=== PATIENT | male | born 1945 | race Caucasian/White ===

== ENCOUNTER 2016-12-11 23:35 | Emergency (ER) | payer MEDICARE ==
[2016-12-12] MEDS ORDERED: ALBUTEROL NEB 2.5 MG/3 ML INH STA (00:15)
[2016-12-12 00:33] LABS: BASOPHILS # (AUTO) 0.1 10^3/uL (0.0-0.1); BASOPHILS % (AUTO) 0.8 %; EOSINOPHILS # (AUTO) 0.2 10^3/uL (0.0-0.7); EOSINOPHILS % (AUTO) 1.6 %; HCT - HEMATOCRIT 45.3 % (42.0-52.0); HGB - HEMOGLOBIN 15.5 g/dL (14.0-18.0); LYMPHOCYTES # (AUTO) 1.4 10^3/uL (1.5-3.5); LYMPHOCYTES % (AUTO) 14.3 %; MEAN CORPUSCULAR HEMOGLOBIN 29.5 pg (27.0-31.0); MEAN CORPUSCULAR HGB CONC 34.3 g/dL (32.0-36.0); MEAN CORPUSCULAR VOLUME 86.2 fL (80.0-94.0); MEAN PLATELET VOLUME 6.8 fL (7.4-11.4); MONOCYTES # (AUTO) 0.8 10^3/uL (0.0-1.0); MONOCYTES % (AUTO) 8.4 %; NEUTROPHILS # (AUTO) 7.4 10^3/uL (1.5-6.6); NEUTROPHILS % (AUTO) 74.9 %; RED BLOOD COUNT 5.26 10^6/uL (4.70-6.10); RED CELL DISTRIBUTION WIDTH 13.5 % (12.0-15.0); UNCORRECTED WHITE BLOOD COUNT 9.8 x10^3/uL; WHITE BLOOD COUNT 9.8 x10^3/uL (4.8-10.8)
[2016-12-12] MEDS ORDERED: ALBUTEROL NEB 2.5 MG/3 ML INH ONE ×2 (00:37→00:53)
[2016-12-12 00:47] LABS: ALBUMIN/GLOBULIN RATIO 1.4 (1.0-2.2); BILIRUBIN,TOTAL 0.5 mg/dL (0.2-1.0); CREATININE 1.1 mg/dL (0.6-1.2); POTASSIUM 3.2 mmol/L (3.5-5.0); TOTAL PROTEIN 7.1 g/dL (6.7-8.2)
--- NOTE | 2016-12-12 01:18 | XRAY Preliminary Report ---
Exam: XR Chest 1 View IMPRESSION: No acute process seen in the chest. [facility] SITE ID: [id number]
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
--- NOTE | 2016-12-12 01:20 | XRAY Report ---
EXAM: CHEST RADIOGRAPHY EXAM DATE: 12/12/2016 12:48 AM. CLINICAL HISTORY: Short of breath. COMPARISON: CT abdomen 06/19/2011, chest x-ray 10/13/2009. TECHNIQUE: 1 view. FINDINGS: Lungs/Pleura: No focal opacities evident. No pleural effusion. No pneumothorax. Mediastinum: Within exam limitations, cardiomediastinal contour is normal. Other: None. IMPRESSION: No acute process seen in the chest. [facility] Referring Provider Line: [phone] SITE ID: [id number]
[2016-12-12 01:38] VITALS: BP 137/84
== END 2016-12-12 01:39 | disposition home or self-care (01) ==
LOC: ED 23:35
DX: T59.811A Toxic effect of smoke, accidental (unintentional), initial encounter (principal); J68.3 Other acute and subacute respiratory conditions due to chemicals, gases, fumes and vapors; I10 Essential (primary) hypertension; E78.00 Pure hypercholesterolemia, unspecified; I48.91 Unspecified atrial fibrillation; K21.9 Gastro-esophageal reflux disease without esophagitis; N40.0 Benign prostatic hyperplasia without lower urinary tract symptoms
CPT/HCPCS: 36415; 71010; 80053; 83690; 83880; 84484; 85025; 93005; 94640; 99283; J7613

== ENCOUNTER 2017-10-23 11:46 | Outpatient (CLI) | payer MEDICARE ==
[2017-10-23 19:11] LABS: HB2 TOTAL 17.4 g/dL; HEMOGLOBIN A1C 0.66 g/dL; HEMOGLOBIN A1C % 5.6 % (4.6-6.2)
[2017-10-23 19:13] LABS: ALBUMIN 3.8 g/dL (3.2-5.5); ALKALINE PHOSPHATASE 52 IU/L (42-121); ALT ALANINE AMINOTRANSFERASE 26 IU/L (10-60); AST ASPARTATE AMINOTRANSFERASE 27 IU/L (10-42); BUN - BLOOD UREA NITROGEN 23 mg/dL (6-20); CALCIUM 9.3 mg/dL (8.5-10.3); CARBON DIOXIDE - CO2 25 mmol/L (21-32); CHLORIDE 103 mmol/L (101-111); CHOL/HDL RATIO 3.4 (<5.0); CHOLESTEROL 124 mg/dL; GFR - MDRD 73 (>89); GLUCOSE 105 mg/dL (70-100); HDL CHOLESTEROL 37 mg/dL; LDL CHOLESTEROL,CALCULATED 64 mg/dL; LDL/HDL RATIO 1.7 (<3.6); SODIUM 136 mmol/L (135-145); TOTAL PROTEIN 7.6 g/dL (6.7-8.2); VLDL CHOLESTEROL 23 mg/dL
== END 2017-10-23 11:47 | disposition home or self-care (01) ==
LOC: LAB.WCP 11:46
PROVIDERS: ATTEND Family Medicine
DX: R73.9 Hyperglycemia, unspecified (principal); I48.0 Paroxysmal atrial fibrillation; I10 Essential (primary) hypertension; E78.5 Hyperlipidemia, unspecified; Z12.5 Encounter for screening for malignant neoplasm of prostate
CPT/HCPCS: 36415; 80053; 80061; 83036; G0103; 83721; 84153

== ENCOUNTER 2018-11-13 06:17 | Day surgery (SDC) | payer MEDICARE ==
[2018-11-13] MEDS ORDERED: LACTATED RINGERS 1,000 ML IV ONE (06:34)
[2018-11-13] MEDS ORDERED: LIDO GARGLE 30 ML BOTTLE ONE (07:25)
[2018-11-13] MEDS ORDERED: MIDAZOLAM 2 MG/2 ML VIAL IVP ONE (07:43)
[2018-11-13] MEDS ORDERED: fentaNYL 100 MCG/2 ML VIAL IVP ONE (07:43)
[2018-11-13] MEDS ORDERED: LIDO GARGLE 30 ML BOTTLE PO ONE (07:52)
[2018-11-13] MEDS ORDERED: BENZOCAINE/TETRACAINE/BUTAMBEN 20 GM MM ONE (07:52)
[2018-11-13 08:52] VITALS: BP 142/82
== END 2018-11-13 06:18 | disposition home or self-care (01) ==
LOC: SDS 06:17
PROVIDERS: ATTEND Surgery
PROC: 0DB58ZX Excision of Esophagus, Via Natural or Artificial Opening Endoscopic, Diagnostic (ICD-10-PCS; principal; 2018-11-13 08:15)
DX: K21.0 Gastro-esophageal reflux disease with esophagitis (principal); K44.9 Diaphragmatic hernia without obstruction or gangrene; I48.91 Unspecified atrial fibrillation; I10 Essential (primary) hypertension; E66.9 Obesity, unspecified; Z68.36 Body mass index [BMI] 36.0-36.9, adult; E78.00 Pure hypercholesterolemia, unspecified; Z79.82 Long term (current) use of aspirin; Z87.11 Personal history of peptic ulcer disease
CPT/HCPCS: 43239; A9270; J7120

== ENCOUNTER 2019-10-07 08:00 | Outpatient (CLI) | payer MEDICARE ==
[2019-10-07 19:51] LABS: ALBUMIN 4.4 g/dL (3.2-5.5); ALBUMIN/GLOBULIN RATIO 1.6 (1.0-2.2); ALKALINE PHOSPHATASE 45 IU/L (42-121); ALT ALANINE AMINOTRANSFERASE 28 IU/L (10-60); AST ASPARTATE AMINOTRANSFERASE 29 IU/L (10-42); BUN - BLOOD UREA NITROGEN 11 mg/dL (6-20); CALCIUM 9.1 mg/dL (8.5-10.3); CARBON DIOXIDE - CO2 26 mmol/L (21-32); CHLORIDE 104 mmol/L (101-111); CHOL/HDL RATIO 3.1 (<5.0); CHOLESTEROL 124 mg/dL; CREATININE 1.1 mg/dL (0.6-1.2); GLUCOSE 109 mg/dL (70-100); HDL CHOLESTEROL 40 mg/dL; LDL CHOLESTEROL,CALCULATED 49 mg/dL; LDL/HDL RATIO 1.2 (<3.6); SODIUM 139 mmol/L (135-145); TOTAL PROTEIN 7.2 g/dL (6.7-8.2); VLDL CHOLESTEROL 35 mg/dL
== END 2019-10-07 23:59 | disposition home or self-care (01) ==
LOC: LAB.WCP 08:00
PROVIDERS: ATTEND Physician Assistant Medical
DX: E78.5 Hyperlipidemia, unspecified (principal)
CPT/HCPCS: 36415; 80053; 80061; 83721

== ENCOUNTER 2019-10-22 13:11 | Outpatient (CLI) | payer MEDICARE | END 2019-10-22 13:12 | disposition home or self-care (01) | LOC: LAB 13:11 → COV 13:12 | PROVIDERS: ATTEND Surgery | DX: Z01.812 Encounter for preprocedural laboratory examination (principal); K40.90 Unilateral inguinal hernia, without obstruction or gangrene, not specified as recurrent; Z11.59 Encounter for screening for other viral diseases ==

== ENCOUNTER 2019-10-26 07:19 | Day surgery (SDC) | payer MEDICARE ==
[2019-10-26] MEDS ORDERED: PROPOFOL 200 MG/20 ML VIAL IVP ONE (07:20)
[2019-10-26] MEDS ORDERED: ONDANSETRON 4 MG/2 ML VIAL IVP ONE (07:20)
[2019-10-26] MEDS ORDERED: DEXAMETHASONE 4 MG/ML VIAL IVP ONE (07:20)
[2019-10-26] MEDS ORDERED: KETOROLAC 30 MG/ML VIAL IVP ONE (07:20)
[2019-10-26] MEDS ORDERED: ePHEDrine 50 MG/ML VIAL IVP ONE (07:20)
[2019-10-26] MEDS ORDERED: fentaNYL 100 MCG/2 ML VIAL IVP ONE (07:20)
[2019-10-26] MEDS ORDERED: LACTATED RINGERS 1,000 ML IV ONE ×2 (07:33→11:15)
--- NOTE | 2019-10-26 07:58 | ANESTHESIA ---
Pre-Anesthesia VS, & Labs - Diagnosis left inguinal hernia - Procedure left inguinal hernia repair Vital Signs: Temp Pulse Resp BP Pulse Ox 36.3 C L 96 14 182/113 H 96 10/26/19 07:40 10/26/19 07:40 10/26/19 07:40 10/26/19 07:40 10/26/19 07:40 Height 5 ft 11 in Weight (kg) 116.6 kg Body Mass Index 33.5 - NPO >8 hours Home Medications and Allergies Lovastatin 40 mg PO DAILY 07/27/15 Omeprazole [Prilosec] 40 mg PO DAILY 07/27/15 Tamsulosin [Flomax] 0.4 mg PO DAILY 07/27/15 lisinopriL [Lisinopril] 10 mg PO DAILY 07/27/15 Meloxicam 15 mg PO DAILY 11/12/18 Allergies/Adverse Reactions: Allergies Allergy/AdvReac Type Severity Reaction Status Date / Time hydrocodone bitartrate * Allergy Unknown Unknown Verified 10/26/19 07:48 [From Vicodin] Anes History & Medical History - Anesthetic History Anesthesia Complications: reports: No previous complications - Medical History Cardiovascular: reports: Hypertension, High cholesterol, Atrial fibrillation (s/p cardioversion, no problems since.) Pulmonary: reports: None Gastrointestinal: reports: GERD (controlled with med.), GI bleed Urinary: reports: Benign prostate hypertrophy Neuro: reports: None Musculoskeletal: reports: None Endocrine/Autoimmune: reports: None Blood Disorders: reports: None Skin: reports: None Smoking Status: Never smoker Psychosocial: reports: No issues indicated - Surgical History General: Hiatal hernia repair, Colonoscopy, EGD, Other Eyes Ears Nose Throat (EENT): Tonsil/Adenoidectomy Exam General: Alert, Oriented x3, Cooperative, No acute distress Dental: WNL Mouth Openin Fingerbreadth Neck Mobility: Normal Mallampati classification: II Thyromental Distance: 4-6 cm (2FB) Respiratory: Lungs clear, Normal breath sounds, No respiratory distress, No accessory muscle use Cardiovascular: Regular rate, Normal S1, Normal S2, No murmurs Mental/Cognitive Status: Alert/Oriented X3, Normal for patient Plan Anesthesia Type: General Consent for Procedure(s) Verified and Reviewed: Yes Code Status: Attempt Resuscitation ASA classification: 2-Mild systemic disease Is this case an emergency?: No
[2019-10-26] MEDS ORDERED: BUPIVACAINE 0.25% PF 30 ML VIAL ONE ×2 (08:08→09:50)
[2019-10-26] MEDS ORDERED: BUPIVACAINE 0.25% PF 30 ML VIAL SUBQ ONE ×4 (09:39→10:53)
[2019-10-26] MEDS ORDERED: ceFAZolin 1 GM VIAL ONE (09:49)
[2019-10-26] MEDS ORDERED: oxyCODONE 5 MG TABLET PO PRN (11:19)
[2019-10-26] MEDS ORDERED: ONDANSETRON 4 MG/2 ML VIAL IVP PRN (11:19)
[2019-10-26 12:16] VITALS: BP 148/91
[2019-10-26] MEDS ORDERED: oxyCODONE 5 MG TABLET ONE (12:16)
--- NOTE | 2019-10-26 16:41 | OPERATIVE REPORT ---
DATE OF SERVICE: 10/26/2019 Physician: Mike Souza MD PREOPERATIVE DIAGNOSIS: Large symptomatic left inguinal hernia with intestinal involvement. POSTOPERATIVE DIAGNOSIS: Large symptomatic left inguinal hernia with intestinal involvement. PROCEDURE PERFORMED: Open left inguinal hernia repair with mesh, Luc. SURGEON: Mike Souza MD MOTOR WINDER: None. ANESTHESIA 1. Laryngeal mask anesthesia. 2. Local anesthesia with Marcaine 60 mL of 0.25 plain. ESTIMATED BLOOD LOSS: None. COMPLICATIONS: None. DRAINS: None. PROSTHETIC: Bard polypropylene mesh. SPECIMENS: Preperitoneal adipose tissue and branching ilioinguinal nerve removed. However, not sent for pathology. FINDINGS: Indirect inguinal hernia sac and herniated preperitoneal adipose tissue. INDICATIONS FOR PROCEDURE: The patient is a 74-year-old gentleman with very symptomatic left inguinal hernia. He presents for more urgent repair. Risks discussed, alternatives discussed. All questions answered and consent obtained. DETAILS OF PROCEDURE: The patient was properly identified, brought to the operating room, and placed in supine position. Voided prior to surgery. Laryngeal mask anesthesia was induced. He was prepped and draped in a sterile fashion and given preoperative antibiotics. Local anesthetic was given throughout the procedure. A 6 cm incision was made in the direction of Elian's lines just cephalad of the pubic tubercle. Dissection proceeded nearly 6 cm down through Amelia's fascia towards the aponeurosis. The aponeurosis was opened in the direction of its fibers extending to the external ring. Patient had a large bulging hernia. The indirect hernia sac was carefully mobilized away from the cord structures. Hernia sac was opened and tissue consistent with fatty appendage of the colon reduced. The indirect hernia sac was closed from the inside with a 2-0 silk pursestring suture. Redundant sac material was removed. Patient had a branching ilioinguinal nerve. It would not have been possible to fix this large hernia and keep the nerves intact without tension or injury. The branching ilioinguinal nerve was removed back to musculature. Herniated preperitoneal adipose tissue was mobilized away from the cord structures, clamped, divided, and tied with 3-0 Vicryl. Cord structures were further mobilized and the shelving border of Poupart ligament carefully defined. A polypropylene mesh was cut to size and with tails. It was secured with multiple interrupted 0 Ethibond sutures. Sutures were placed over the pubic tubercle along the shelving border of Poupart ligament and along musculature of the internal plica. He did not have a good quality fascia medially. Care was taken not to entrap the iliohypogastric nerve or the underlying genital femoral nerve, which was easily evident. The medial tail of the mesh was secured to the shelving border of Poupart ligament with 4 interrupted 0 Ethibond sutures, recreating the internal ring of appropriate size. The aponeurosis was closed with a running 2-0 Vicryl. Amelia's was closed with interrupted 3-0 Vicryl suture. Buried interrupted subdermal 3-0 Vicryl sutures were then placed. Skin was closed with a running 4-0 Monocryl subcuticular suture. Dressing was applied. He tolerated the procedure well. TD: 10/26/2019 15:03 KALLIE
== END 2019-10-26 07:20 | disposition home or self-care (01) ==
LOC: SDS 07:19
PROVIDERS: ATTEND Surgery
DX: K40.90 Unilateral inguinal hernia, without obstruction or gangrene, not specified as recurrent (principal); I10 Essential (primary) hypertension; I48.91 Unspecified atrial fibrillation
CPT/HCPCS: 49505; A9270; C1781; J7120

== ENCOUNTER 2020-01-15 06:30 | Day surgery (SDC) | payer MEDICARE ==
[2020-01-15] MEDS ORDERED: fentaNYL 250 MCG/5 ML VIAL IVP ONE (06:31)
[2020-01-15] MEDS ORDERED: MIDAZOLAM 2 MG/2 ML VIAL IVP ONE (06:31)
[2020-01-15] MEDS ORDERED: LACTATED RINGERS 1,000 ML IV ONE ×2 (06:58→08:35)
[2020-01-15 08:48] VITALS: BP 114/78
== END 2020-01-15 06:31 | disposition home or self-care (01) ==
LOC: SDS 06:30
PROVIDERS: ATTEND Surgery
PROC: 0DBP8ZZ Excision of Rectum, Via Natural or Artificial Opening Endoscopic (ICD-10-PCS; principal; 2020-01-15 07:30)
DX: Z12.11 Encounter for screening for malignant neoplasm of colon (principal); D12.8 Benign neoplasm of rectum; I48.91 Unspecified atrial fibrillation; I10 Essential (primary) hypertension
CPT/HCPCS: 45380; J3010; J7120

== ENCOUNTER 2020-05-18 08:00 | Outpatient (CLI) | payer MEDICARE ==
[2020-05-18 18:43] LABS: ALBUMIN 4.2 g/dL (3.2-5.5); ALBUMIN/GLOBULIN RATIO 1.3 (1.0-2.2); ALKALINE PHOSPHATASE 56 IU/L (42-121); ALT ALANINE AMINOTRANSFERASE 27 IU/L (10-60); AST ASPARTATE AMINOTRANSFERASE 26 IU/L (10-42); BILIRUBIN,TOTAL 0.8 mg/dL (0.2-1.0); BUN - BLOOD UREA NITROGEN 14 mg/dL (6-20); CALCIUM 9.4 mg/dL (8.5-10.3); CARBON DIOXIDE - CO2 26 mmol/L (21-32); CHLORIDE 102 mmol/L (101-111); CHOL/HDL RATIO 2.9 (<5.0); CHOLESTEROL 127 mg/dL; GLUCOSE 111 mg/dL (70-100); HDL CHOLESTEROL 44 mg/dL; LDL CHOLESTEROL,CALCULATED 62 mg/dL; LDL/HDL RATIO 1.4 (<3.6); TOTAL PROTEIN 7.5 g/dL (6.7-8.2); VLDL CHOLESTEROL 21 mg/dL
== END 2020-05-18 23:59 | disposition home or self-care (01) ==
LOC: LAB.WCP 08:00
PROVIDERS: ATTEND Physician Assistant Medical
DX: E78.5 Hyperlipidemia, unspecified (principal)
CPT/HCPCS: 36415; 80053; 80061; 83721

== ENCOUNTER 2021-06-02 10:28 | Outpatient (CLI) | payer MEDICARE ==
[2021-06-02 12:10] LABS: BASOPHILS # (AUTO) 0.1 10^3/uL (0.0-0.1); BASOPHILS % (AUTO) 0.8 %; EOSINOPHILS # (AUTO) 0.2 10^3/uL (0.0-0.7); HCT - HEMATOCRIT 48.4 % (42.0-52.0); HGB - HEMOGLOBIN 16.7 g/dL (14.0-18.0); MEAN CORPUSCULAR HEMOGLOBIN 30.1 pg (27.0-31.0); MEAN CORPUSCULAR HGB CONC 34.5 g/dL (32.0-36.0); MEAN CORPUSCULAR VOLUME 87.2 fL (80.0-94.0); MEAN PLATELET VOLUME 9.4 fL (7.4-11.4); MONOCYTES # (AUTO) 0.8 10^3/uL (0.0-1.0); NEUTROPHILS # (AUTO) 5.8 10^3/uL (1.5-6.6); NEUTROPHILS % (AUTO) 65.6 %; PLT - PLATELET COUNT 249 10^3/uL (130-450); RED BLOOD COUNT 5.55 10^6/uL (4.70-6.10); RED CELL DISTRIBUTION WIDTH 13.4 % (12.0-15.0); WHITE BLOOD COUNT 8.9 x10^3/uL (4.8-10.8)
[2021-06-02 12:28] LABS: ALBUMIN 4.3 g/dL (3.2-5.5); ALBUMIN/GLOBULIN RATIO 1.3 (1.0-2.2); ALKALINE PHOSPHATASE 54 IU/L (42-121); ALT ALANINE AMINOTRANSFERASE 27 IU/L (10-60); AST ASPARTATE AMINOTRANSFERASE 25 IU/L (10-42); BILIRUBIN,TOTAL 1.1 mg/dL (0.2-1.0); BUN - BLOOD UREA NITROGEN 14 mg/dL (6-20); CALCIUM 9.4 mg/dL (8.5-10.3); CARBON DIOXIDE - CO2 25 mmol/L (21-32); CHLORIDE 100 mmol/L (101-111); CHOL/HDL RATIO 2.4 (<5.0); CHOLESTEROL 125 mg/dL; GFR - MDRD 72 (>89); GLUCOSE 121 mg/dL (70-100); HDL CHOLESTEROL 52 mg/dL; LDL CHOLESTEROL,CALCULATED 57 mg/dL; LDL/HDL RATIO 1.1 (<3.6); POTASSIUM 4.4 mmol/L (3.5-5.0); SODIUM 135 mmol/L (135-145); TOTAL PROTEIN 7.7 g/dL (6.7-8.2); TRIGLYCERIDES 82 mg/dL; VLDL CHOLESTEROL 16 mg/dL
[2021-06-02 12:53] LABS: THYROID STIMULATING HORMONE 2.7 uIU/mL (0.34-5.60)
[2021-06-02 13:33] LABS: ESTIMATED AVERAGE GLUCOSE 114 mg/dL (70-100); HEMOGLOBIN A1c% 5.6 % (4.27-6.07)
== END 2021-06-02 10:29 | disposition home or self-care (01) ==
LOC: LAB.N 10:28
PROVIDERS: ATTEND Physician Assistant Medical
DX: I10 Essential (primary) hypertension (principal); E78.5 Hyperlipidemia, unspecified; R73.9 Hyperglycemia, unspecified; Z12.5 Encounter for screening for malignant neoplasm of prostate; Z13.29 Encounter for screening for other suspected endocrine disorder
CPT/HCPCS: 36415; 80053; 80061; 83036; 84443; 85025; G0103; 83721; 84153

== ENCOUNTER 2021-06-09 13:55 | Outpatient (CLI) | payer MEDICARE ==
--- NOTE | 2021-06-09 16:15 | XRAY Report ---
PROCEDURE: Hip w/Pelvis 2-3V LT INDICATIONS: HIP PAIN, LEFT TECHNIQUE: AP pelvis with lateral view(s) of the left hip(s). COMPARISON: None. FINDINGS: Bones: No fractures or dislocations. Pelvic ring appears intact. No suspicious bony lesions. Symm etric hip joint degeneration bilaterally. Soft tissues: The visualized bowel gas pattern is normal. No suspicious soft tissue calcifications. IMPRESSION: Mild degenerative joint disease. Reviewed by: Tahmina Escamilla MD on 06/09/2021 4:13 PM PST Approved by: Tahmina Escamilla MD on 06/09/2021 4:13 PM PST Station ID: [id number]
--- NOTE | 2021-06-09 16:39 | XRAY Report ---
PROCEDURE: Lumbar Spine 2 View INDICATIONS: LOW BACK PAIN, CHRONIC TECHNIQUE: 3 views of the lumbar spine were acquired. COMPARISON: None. FINDINGS: Bones: 5 [id number] vertebrae are present. There are multilevel degenerative changes with anter ior osteophytes and disc space narrowing at L2-3, L3-4, and L4-5. Facet arthrosis is seen in the lowe r lumbar spine. The sacroiliac joints are normal. There is mild leftward curvature of the lumbar spin e. No vertebral body height loss. Soft tissues: Overlying bowel gas pattern is normal. No suspicious soft tissue calcifications. IMPRESSION: 1. Multilevel degenerative changes and facet arthrosis. 2. Multilevel disc disease. Reviewed by: Jorge Coreas on 06/09/2021 4:37 PM PST Approved by: Jorge Coreas on 06/09/2021 4:37 PM [facility] Station ID: [id number]
== END 2021-06-09 13:56 | disposition home or self-care (01) ==
LOC: DI.N 13:55
PROVIDERS: ATTEND Physician Assistant Medical
DX: M47.816 Spondylosis without myelopathy or radiculopathy, lumbar region (principal); M51.36 Other intervertebral disc degeneration, lumbar region; M16.12 Unilateral primary osteoarthritis, left hip

== ENCOUNTER → 2022-02-02 | Outpatient (CLI) | payer MEDICARE | END | disposition short-term general hospital (02) | LOC: EMS 07:46 | DX: R06.02 Shortness of breath (principal); R06.2 Wheezing | CPT/HCPCS: A0425; A0427 ==

== ENCOUNTER 2022-02-14 12:56 | Outpatient (CLI) | payer MEDICARE ==
[2022-02-14 17:58] LABS: BILIRUBIN,URINE NEGATIVE (NEGATIVE); GLUCOSE, URINE (UA) NEGATIVE (NEGATIVE); KETONES,URINE (UA) NEGATIVE (NEGATIVE); LEUKOCYTE ESTERASE, URINE NEGATIVE (NEGATIVE); NITRITE,URINE NEGATIVE (NEGATIVE); OCCULT BLOOD,URINE LARGE (NEGATIVE); PROTEIN,URINE NEGATIVE (NEGATIVE); UROBILINOGEN,URINE 0.2 (NORMAL) E.U./dL (NORMAL)
[2022-02-14 17:59] LABS: CLARITY,URINE CLEAR (CLEAR)
[2022-02-14 18:06] LABS: CALCIUM 9.1 mg/dL (8.5-10.3); POTASSIUM 4.3 mmol/L (3.5-5.0)
[2022-02-14 18:07] LABS: BACTERIA,URINE Rare /HPF (None Seen); MUCUS,URINE Few Strands; RBC,URINE TNTC /HPF (0-5); SQUAMOUS EPITHELIAL CELL,UR RARE Squamous (<= Few); WBC,URINE 0-3 /HPF (0-3)
== END 2022-02-14 12:57 | disposition home or self-care (01) ==
LOC: LAB.N 12:56
PROVIDERS: ATTEND Physician Assistant
DX: E78.1 Pure hyperglyceridemia (principal); R31.9 Hematuria, unspecified
CPT/HCPCS: 36415; 80048; 81001; 87086

== ENCOUNTER 2022-03-09 16:30 | Outpatient (CLI) | payer MEDICARE ==
--- NOTE | 2022-03-09 22:30 | Ultrasound Report ---
PROCEDURE: Retroperitoneal INDICATIONS: HEMATURIA TECHNIQUE: Real-time scanning was performed of the kidneys and bladder, with image documentation. COMPARISON: CT abdomen/pelvis 06/19/2011 FINDINGS: Kidneys: Kidneys are normal in size. Right kidney measures 11.4 cm long; left kidney measures 11.4 cm long. Right renal cortical thickness is 1.1 cm; left renal cortical thickness is 1.6 cm. Renal c ortical echotexture is normal. No hydronephrosis or nephrolithiasis. No suspicious solid mass lesio ns. Bladder: Pre-void bladder volume is 59 mL. Post-void residual is 22 mL. Bladder is not well evaluat ed on prevoid images due to incomplete distention. On pre-void images, bilateral ureteral jets are no osorio with color Doppler interrogation. (Of note, ureteral jets may not be detectable in up to 25% of cases due to insufficient differences in specific gravity between ureteral and bladder urine). Miscellaneous: No free pelvic fluid. Prostate measures 8.2 x 5.3 x 7 cm. IMPRESSION: 1.Marked prostatomegaly. 2.No hydronephrosis or nephrolithiasis. Reviewed by: Eugene Richter MD on 03/09/2022 10:29 PM PST Approved by: Eugene Richter MD on 03/09/2022 10:29 PM PST Station ID: [id number]
== END 2022-03-09 16:31 | disposition home or self-care (01) ==
LOC: DI 16:30
PROVIDERS: ATTEND Family Medicine
DX: N40.0 Benign prostatic hyperplasia without lower urinary tract symptoms (principal)

== ENCOUNTER 2022-04-09 09:58 | Outpatient (CLI) | payer MEDICARE ==
[2022-04-09 12:26] LABS: ALBUMIN 4.1 g/dL (3.2-5.5); ALBUMIN/GLOBULIN RATIO 1.2 (1.0-2.2); ALKALINE PHOSPHATASE 51 IU/L (42-121); ALT ALANINE AMINOTRANSFERASE 19 IU/L (10-60); AST ASPARTATE AMINOTRANSFERASE 19 IU/L (10-42); BILIRUBIN,TOTAL 1.2 mg/dL (0.2-1.0); BUN - BLOOD UREA NITROGEN 13 mg/dL (6-20); CALCIUM 9.4 mg/dL (8.5-10.3); CARBON DIOXIDE - CO2 28 mmol/L (21-32); CHLORIDE 96 mmol/L (101-111); CHOL/HDL RATIO 2.1 (<5.0); CHOLESTEROL 107 mg/dL; CREATININE 0.8 mg/dL (0.6-1.2); GFR - MDRD 93 (>89); GLUCOSE 99 mg/dL (70-100); HDL CHOLESTEROL 50 mg/dL; LDL CHOLESTEROL,CALCULATED 43 mg/dL; LDL/HDL RATIO 0.9 (<3.6); POTASSIUM 4.2 mmol/L (3.5-5.0); SODIUM 132 mmol/L (135-145); TOTAL PROTEIN 7.4 g/dL (6.7-8.2); TRIGLYCERIDES 71 mg/dL; VLDL CHOLESTEROL 14 mg/dL
[2022-04-09 12:28] LABS: BILIRUBIN,URINE NEGATIVE (NEGATIVE); GLUCOSE, URINE (UA) NEGATIVE (NEGATIVE); KETONES,URINE (UA) NEGATIVE (NEGATIVE); LEUKOCYTE ESTERASE, URINE NEGATIVE (NEGATIVE); NITRITE,URINE NEGATIVE (NEGATIVE); OCCULT BLOOD,URINE NEGATIVE (NEGATIVE); PH,URINE 6.5 PH (5.0-7.5); PROTEIN,URINE NEGATIVE (NEGATIVE); UROBILINOGEN,URINE 0.2 (NORMAL) E.U./dL (NORMAL)
[2022-04-09 12:32] LABS: CLARITY,URINE CLEAR (CLEAR)
[2022-04-09 13:05] LABS: BACTERIA,URINE Few /HPF (None Seen); RBC,URINE 0-5 /HPF (0-5); SQUAMOUS EPITHELIAL CELL,UR RARE Squamous (<= Few); WBC,URINE 0-3 /HPF (0-3)
[2022-04-09 14:47] LABS: ESTIMATED AVERAGE GLUCOSE 123 mg/dL (70-100); HEMOGLOBIN A1c% 5.9 % (4.27-6.07)
== END 2022-04-09 09:59 | disposition home or self-care (01) ==
LOC: LAB.N 09:58
PROVIDERS: ATTEND Physician Assistant Medical
DX: E78.5 Hyperlipidemia, unspecified (principal); R73.9 Hyperglycemia, unspecified; R31.9 Hematuria, unspecified
CPT/HCPCS: 36415; 80053; 80061; 81001; 83036; 83721; 87086

== ENCOUNTER 2022-05-01 12:25 | Outpatient (CLI) | payer MEDICARE ==
--- NOTE | 2022-05-01 19:05 | MRI Report ---
PROCEDURE: LUMBAR SPINE WO INDICATIONS: LOW BACK PAIN TECHNIQUE: Noncontrast sagittal T1 spin echo and T2 fast echo, sagittal STIR, axial T1 and T2 fast spin echo thr ough the lumbar spine. In cases with scoliosis, additional coronal T2 fast spin echo may be performe d. COMPARISON: Correlation is made with lumbar plain films, 06/09/2021. FINDINGS: Image quality: Excellent. Alignment and Curvature: There is minimal retrolisthesis seen at the L3-L4 and L4-L5 levels. Mild le voconvex scoliotic curvature is seen. Bone Marrow: Marrow is of normal overall signal. No acute vertebral body compression fractures. Spinal Cord: Conus medullaris terminates at the L1 level. Visualized cord demonstrates normal signa l and size. Paraspinous Soft Tissues: No paravertebral masses. T12-L1: Moderate loss of disc height and signal are seen. No significant neural foraminal or cent ral canal narrowing can be seen. L1-L2: Mild loss of disc height and disc signal are seen. No significant neural foraminal or sean tral canal narrowing can be seen. L2-L3: Mild loss of disc height and disc signal are seen. There is a likely subacute Schmorl's nod e seen involving the superior endplate of L3, as on series 4 image 13 and on series 2 image 13. No si gnificant neural foraminal or central canal narrowing can be seen. L3-L4: Moderate to severe loss of disc height and disc signal can be seen. Reactive marrow endplat e changes are seen, which are hyperintense on T1-weighted and T2-weighted imaging, without significan t increased STIR signal. These imaging findings are most consistent with fatty metaplasia (Modic type 2 change). At least moderate disc bulge is seen, with a central disc protrusion. Mild to moderate facet hypertrophy is seen. At least moderate bilateral neuroforaminal narrowing can be seen. At least moderate central canal narrowing is seen. L4-L5: At least moderate loss of disc height is seen. Fluid signal is seen along the disc level its elf. Mild endplate edema can be seen. Moderate disc bulge is seen, which is eccentric to the right. A t least moderate facet hypertrophy is seen at this level. Moderate to severe bilateral neural foramin al narrowing can be seen, with associated compression upon the exiting nerve roots. There is severe central canal narrowing seen. L5-S1: Mild loss of disc height and disc signal are seen. Moderate disc bulge is seen at this level. There is moderate right-sided and at least moderate left-sided facet hypertrophy. There is at least moderate right-sided and moderate to severe left-sided neuroforaminal narrowing. Compression i s seen upon the exiting nerve roots. At least moderate central canal narrowing is seen. IMPRESSION: Multiple levels of degenerative change can be seen, which are worst inferiorly. At the L4-L5 level, there is fluid signal seen along the disc itself and there is endplate edema. Thi s is felt most likely to be related to degenerative and reactive change. However, differential diagno sis would also include discitis. If clinically appropriate, please consider short-term follow-up cont rast-enhanced MRI for further evaluation. Reviewed by: Edis Zaidi MD on 05/01/2022 6:04 PM [place] Approved by: Edis Zaidi MD on 05/01/2022 6:04 PM [facility] Station ID: [id number]
== END 2022-05-01 12:26 | disposition home or self-care (01) ==
LOC: DI 12:25
PROVIDERS: ATTEND Physician Assistant Medical
DX: M47.816 Spondylosis without myelopathy or radiculopathy, lumbar region (principal)

== ENCOUNTER 2022-10-11 12:57 | Outpatient (CLI) | payer MEDICARE ==
[2022-10-11 18:17] LABS: BASOPHILS # (AUTO) 0.1 10^3/uL (0.0-0.1); BASOPHILS % (AUTO) 0.6 %; EOSINOPHILS # (AUTO) 0.2 10^3/uL (0.0-0.7); EOSINOPHILS % (AUTO) 2.5 %; HCT - HEMATOCRIT 38.9 % (42.0-52.0); LYMPHOCYTES # (AUTO) 1.7 10^3/uL (1.5-3.5); LYMPHOCYTES % (AUTO) 21.3 %; MEAN CORPUSCULAR HEMOGLOBIN 30.4 pg (27.0-31.0); MEAN CORPUSCULAR HGB CONC 33.4 g/dL (32.0-36.0); MEAN CORPUSCULAR VOLUME 90.9 fL (80.0-94.0); MEAN PLATELET VOLUME 9.2 fL (7.4-11.4); MONOCYTES # (AUTO) 0.8 10^3/uL (0.0-1.0); MONOCYTES % (AUTO) 9.7 %; NEUTROPHILS # (AUTO) 5.2 10^3/uL (1.5-6.6); NEUTROPHILS % (AUTO) 65.4 %; PLT - PLATELET COUNT 267 10^3/uL (130-450); RED BLOOD COUNT 4.28 10^6/uL (4.70-6.10); RED CELL DISTRIBUTION WIDTH 13.6 % (12.0-15.0)
[2022-10-11 18:22] LABS: CALCIUM 9.3 mg/dL (8.5-10.3); CREATININE 0.8 mg/dL (0.6-1.2); POTASSIUM 4.4 mmol/L (3.5-5.0)
== END 2022-10-11 12:58 | disposition home or self-care (01) ==
LOC: LAB.N 12:57
PROVIDERS: ATTEND Physician Assistant Medical
DX: D64.9 Anemia, unspecified (principal); E87.1 Hypo-osmolality and hyponatremia
CPT/HCPCS: 36415; 80048; 82728; 85025

== ENCOUNTER 2022-12-09 12:55 | Outpatient (CLI) | payer MEDICARE | END 2022-12-09 23:59 | disposition short-term general hospital (02) | LOC: EMS 12:55 | DX: R58 Hemorrhage, not elsewhere classified (principal); R10.814 Left lower quadrant abdominal tenderness; R10.813 Right lower quadrant abdominal tenderness; Z79.01 Long term (current) use of anticoagulants | CPT/HCPCS: A0425; A0429 ==

== ENCOUNTER 2023-01-11 14:36 | Outpatient (CLI) | payer MEDICARE ==
[2023-01-11 17:53] LABS: BASOPHILS # (AUTO) 0.1 10^3/uL (0.0-0.1); BASOPHILS % (AUTO) 0.6 %; EOSINOPHILS # (AUTO) 0.2 10^3/uL (0.0-0.7); EOSINOPHILS % (AUTO) 2.3 %; HCT - HEMATOCRIT 36.5 % (42.0-52.0); HGB - HEMOGLOBIN 11.8 g/dL (14.0-18.0); LYMPHOCYTES # (AUTO) 2.1 10^3/uL (1.5-3.5); MEAN CORPUSCULAR HEMOGLOBIN 28.6 pg (27.0-31.0); MEAN CORPUSCULAR HGB CONC 32.3 g/dL (32.0-36.0); MEAN CORPUSCULAR VOLUME 88.6 fL (80.0-94.0); MONOCYTES % (AUTO) 11.5 %; PLT - PLATELET COUNT 250 10^3/uL (130-450); RED BLOOD COUNT 4.12 10^6/uL (4.70-6.10); RED CELL DISTRIBUTION WIDTH 13.2 % (12.0-15.0); WHITE BLOOD COUNT 8.3 x10^3/uL (4.8-10.8)
[2023-01-11 18:23] LABS: ALBUMIN 4.1 g/dL (3.2-5.5); ALBUMIN/GLOBULIN RATIO 1.4 (1.0-2.2); ALKALINE PHOSPHATASE 60 IU/L (42-121); ALT ALANINE AMINOTRANSFERASE 9 IU/L (10-60); AST ASPARTATE AMINOTRANSFERASE 16 IU/L (10-42); BILIRUBIN,TOTAL 0.3 mg/dL (0.2-1.0); BUN - BLOOD UREA NITROGEN 10 mg/dL (6-20); CALCIUM 9.5 mg/dL (8.5-10.3); CARBON DIOXIDE - CO2 28 mmol/L (21-32); CHLORIDE 101 mmol/L (101-111); CHOL/HDL RATIO 2.2 (<5.0); CHOLESTEROL 115 mg/dL; CREATININE 0.9 mg/dL (0.6-1.3); GFR - MDRD 82 (>89); GLUCOSE 122 mg/dL (74-104); HDL CHOLESTEROL 53 mg/dL; LDL CHOLESTEROL,CALCULATED 36 mg/dL; LDL/HDL RATIO 0.7 (<3.6); POTASSIUM 4.2 mmol/L (3.5-4.5); SODIUM 136 mmol/L (135-145); TOTAL PROTEIN 7.1 g/dL (6.4-8.9); TRIGLYCERIDES 129 mg/dL (48-352); VLDL CHOLESTEROL 26 mg/dL
== END 2023-01-11 14:37 | disposition home or self-care (01) ==
LOC: LAB.N 14:36
PROVIDERS: ATTEND Physician Assistant Medical
DX: E78.5 Hyperlipidemia, unspecified (principal); D64.9 Anemia, unspecified
CPT/HCPCS: 36415; 80053; 80061; 83721; 85025

== ENCOUNTER 2023-07-10 08:04 | Outpatient (CLI) | payer MEDICARE | END 2023-07-10 08:05 | disposition home or self-care (01) | LOC: LAB.N 08:04 | PROVIDERS: ATTEND Specialist | DX: N40.0 Benign prostatic hyperplasia without lower urinary tract symptoms (principal) | CPT/HCPCS: 36415; 84153 ==

== ENCOUNTER 2023-09-30 09:45 | Outpatient (CLI) | payer MEDICARE ==
[2023-09-30 12:22] LABS: BASOPHILS # (AUTO) 0.1 10^3/uL (0.0-0.1); BASOPHILS % (AUTO) 0.8 %; EOSINOPHILS # (AUTO) 0.2 10^3/uL (0.0-0.7); EOSINOPHILS % (AUTO) 1.9 %; HGB - HEMOGLOBIN 11.7 g/dL (14.0-18.0); LYMPHOCYTES # (AUTO) 1.9 10^3/uL (1.5-3.5); LYMPHOCYTES % (AUTO) 24.3 %; MEAN CORPUSCULAR HEMOGLOBIN 25.9 pg (27.0-31.0); MEAN CORPUSCULAR HGB CONC 31.6 g/dL (32.0-36.0); MEAN PLATELET VOLUME 9.5 fL (7.4-11.4); MONOCYTES # (AUTO) 0.9 10^3/uL (0.0-1.0); MONOCYTES % (AUTO) 11.7 %; NEUTROPHILS # (AUTO) 4.8 10^3/uL (1.5-6.6); NEUTROPHILS % (AUTO) 60.9 %; PLT - PLATELET COUNT 239 10^3/uL (130-450); RED BLOOD COUNT 4.51 10^6/uL (4.70-6.10); RED CELL DISTRIBUTION WIDTH 17.6 % (12.0-15.0); WHITE BLOOD COUNT 7.9 x10^3/uL (4.8-10.8)
[2023-09-30 12:55] LABS: ALBUMIN 4.4 g/dL (3.2-5.5); ALBUMIN/GLOBULIN RATIO 1.8 (1.0-2.2); ALKALINE PHOSPHATASE 51 IU/L (42-121); ALT ALANINE AMINOTRANSFERASE 11 IU/L (10-60); AST ASPARTATE AMINOTRANSFERASE 16 IU/L (10-42); BILIRUBIN,TOTAL 0.9 mg/dL (0.2-1.0); BUN - BLOOD UREA NITROGEN 15 mg/dL (6-20); CALCIUM 9.8 mg/dL (8.5-10.3); CARBON DIOXIDE - CO2 29 mmol/L (21-32); CHLORIDE 100 mmol/L (101-111); CHOL/HDL RATIO 2.2 (<5.0); CHOLESTEROL 115 mg/dL; CREATININE 0.9 mg/dL (0.6-1.3); GFR - MDRD 81 (>89); GLUCOSE 99 mg/dL (74-104); HDL CHOLESTEROL 52 mg/dL; LDL CHOLESTEROL,CALCULATED 37 mg/dL; LDL/HDL RATIO 0.7 (<3.6); POTASSIUM 4.1 mmol/L (3.5-4.5); SODIUM 133 mmol/L (135-145); TOTAL PROTEIN 6.9 g/dL (6.4-8.9); TRIGLYCERIDES 129 mg/dL (48-352); VLDL CHOLESTEROL 26 mg/dL
[2023-09-30 13:07] LABS: THYROID STIMULATING HORMONE 2.01 uIU/mL (0.34-5.60)
== END 2023-09-30 09:46 | disposition home or self-care (01) ==
LOC: LAB.N 09:45
PROVIDERS: ATTEND Physician Assistant Medical
DX: I10 Essential (primary) hypertension (principal); E78.5 Hyperlipidemia, unspecified
CPT/HCPCS: 36415; 80053; 80061; 83721; 84443; 85025

== ENCOUNTER 2023-12-19 07:17 | Day surgery (SDC) | payer MEDICARE ==
[2023-12-19] MEDS: LACTATED RINGERS 1,000 ML IV ONE (07:22)
[2023-12-19] MEDS ORDERED: METOPROLOL 5 MG/5 ML VIAL IVP ONE (08:11)
--- NOTE | 2023-12-19 08:41 | ANESTHESIA ---
Pre-Anesthesia VS, & Labs - Diagnosis hx of chun's - Procedure EGD Vital Signs: Temp Pulse Resp BP Pulse Ox O2 Flow Rate 36.5 C 73 16 177/99 H 94 12/19/23 07:37 12/19/23 08:13 12/19/23 08:13 12/19/23 08:13 12/19/23 08:13 Height: 6 ft Weight (kg): 108.6 kg Body Mass Index: 32.4 BMI Classification: Obese - NPO >8 hours Home Medications and Allergies Home Medications: Ambulatory Orders Apixaban [Eliquis] 1 tab PO DAILY 12/18/23 carvediloL [Coreg] 1 tab PO BID 12/18/23 Lovastatin 40 mg PO DAILY 07/27/15 Omeprazole [Prilosec] 40 mg PO DAILY 07/27/15 lisinopriL [Lisinopril] 10 mg PO BID 07/27/15 Apixaban [Eliquis] 1 tab PO DAILY 12/18/23 carvediloL [Coreg] 1 tab PO BID 12/18/23 Allergies/Adverse Reactions: Allergies Allergy/AdvReac Type Severity Reaction Status Date / Time hydrocodone bitartrate * Allergy Unknown Unknown Verified 12/19/23 07:53 [From Vicodin] Anes History & Medical History - Anesthetic History Anesthesia Complications: reports: No previous complications Family history of Anesthesia Complications: Denies Family history of Malignant Hyperthermia: Denies - Medical History Cardiovascular: reports: Hypertension, High cholesterol, Atrial fibrillation Pulmonary: reports: None Gastrointestinal: reports: GERD, GI bleed Urinary: reports: Benign prostate hypertrophy Neuro: reports: None Musculoskeletal: reports: Osteoarthritis Endocrine/Autoimmune: reports: None Blood Disorders: reports: None Skin: reports: Other Smoking Status: Never smoker Psychosocial: reports: No issues indicated - Surgical History General: reports: Hiatal hernia repair, Colonoscopy, EGD, Other Eyes Ears Nose Throat (EENT): reports: Tonsil/Adenoidectomy Exam General: Alert, Oriented x3, Cooperative Dental: WNL Mouth Openin Fingerbreadth Neck Mobility: Normal Mallampati classification: II Thyromental Distance: 4-6 cm Respiratory: Lungs clear Cardiovascular: Other (AFib) Plan Anesthesia Type: General, Total IV Consent for Procedure(s) Verified and Reviewed: Yes Code Status: Attempt Resuscitation ASA classification: 3-Severe systemic disease Is this case an emergency?: No
--- NOTE | 2023-12-19 08:42 | HISTORY & PHYSICAL EXAMINATION ---
Chief Complaint - Chief Complaint Chief Complaint: here for upper endoscopy History of Present Illness - History Obtained From Records Reviewed: yes History obtained from: pt Exam Limitations: none - History of Present Illness HPI Comment/Other: hx barretts and reflux/ hiatal hernia surgery. here for surveillance metaplasia. History - Past Medical History Cardiovascular: reports: Hypertension, High cholesterol, Atrial fibrillation Respiratory: reports: None Neuro: reports: None Endocrine/Autoimmune: reports: None GI: reports: GERD, GI bleed : reports: Benign prostate hypertrophy HEENT: reports: None Psych: reports: None Musculoskeletal: reports: Osteoarthritis Derm: reports: Other MRSA Hx?: No - Past Surgical History General: reports: Hiatal hernia repair, Colonoscopy, EGD, Other HEENT: reports: Tonsil/Adenoidectomy Meds/Allgy - Home Medications Home Medications: Ambulatory Orders Medication Instructions Recorded Confirmed Lovastatin 40 mg PO DAILY 07/27/15 12/19/23 Omeprazole [Prilosec] 40 mg PO DAILY 07/27/15 12/19/23 lisinopriL [Lisinopril] 10 mg PO BID 07/27/15 12/19/23 Apixaban [Eliquis] 1 tab PO DAILY 12/18/23 12/18/23 carvediloL [Coreg] 1 tab PO BID 12/18/23 12/19/23 - Allergies Allergies/Adverse Reactions: Allergies Allergy/AdvReac Type Severity Reaction Status Date / Time hydrocodone bitartrate * Allergy Unknown Unknown Verified 12/19/23 07:53 [From Vicodin] Review of Systems - Other Findings Other Findings: 10 pt ros as above otherwise unremarkable Exam - Vital Signs Vital Signs: Vital Signs x48h Temp Pulse Resp BP Pulse Ox 12/19/23 08:13 73 16 177/99 H 94 12/19/23 08:00 73 22 180/91 H 94 12/19/23 07:37 36.5 C 68 96 H 203/109 H 94 - Physical Exam General Appearance: positive: No acute distress, Alert ENT: positive: No signs of dehydration Neck: positive: No JVD, Trachea midline Cardiovascular: positive: Irregularly irregular Abdomen: positive: Non-tender, No distention Neurologic/Psychiatric: positive: Oriented x3 Conclusion/Plan - Problem List (1) History of [place] esophagus Conclusion/Plan: plan egd with biopsies. parq held and consent obtained
[2023-12-19] MEDS ORDERED: LIDOCAINE-MPF 2% 5 ML VIAL ONE (08:45)
[2023-12-19] MEDS ORDERED: PROPOFOL 200 MG/20 ML VIAL IVP ONE (08:45)
[2023-12-19 09:26] VITALS: BP 204/97; O2SAT 95
--- NOTE | 2023-12-19 11:55 | ANESTHESIA POST OP EVALUATION ---
Anesthesia Post Eval - Post Anesthesia Eval Vitals: Last Vital Signs Temp 36 C L 12/19/23 09:01 Pulse 70 12/19/23 09:01 Resp 16 12/19/23 09:01 BP 204/97 H 12/19/23 09:01 Pulse Ox 95 12/19/23 09:01 O2 Flow Rate CV Function Including HR & BP: Stable Pain Control: Satisfactory Nausea & Vomiting: Negative Mental Status: Baseline Respiratory Status: Airway Patent Hydration Status: Satisfactory Anesthesia Complications: None (cancelled for HTN)
== END 2023-12-19 07:18 | disposition home or self-care (01) ==
LOC: SDS 07:17
PROVIDERS: ATTEND Surgery
DX: Z09 Encounter for follow-up examination after completed treatment for conditions other than malignant neoplasm (principal); Z87.19 Personal history of other diseases of the digestive system; I10 Essential (primary) hypertension; Z53.09 Procedure and treatment not carried out because of other contraindication

== ENCOUNTER 2023-12-30 10:46 | Outpatient (CLI) | payer MEDICARE ==
[2023-12-30 18:20] LABS: % IRON SATURATION 9 % (20-50); IRON 44 ug/dL (50-212); TOTAL IRON BINDING CAPACITY 479 ug/dL (250-450); TRANSFERRIN 342 mg/dL (203-362)
[2023-12-30 18:34] LABS: FERRITIN 10.5 ng/mL (23.9-336.2)
== END 2023-12-30 10:47 | disposition home or self-care (01) ==
LOC: LAB.N 10:46
PROVIDERS: ATTEND Physician Assistant Medical
DX: D64.9 Anemia, unspecified (principal)
CPT/HCPCS: 36415; 82607; 82728; 82746; 83540; 84466